=== PATIENT | male | born 1990 | race Caucasian/White ===

== ENCOUNTER 2018-01-13 16:48 | Emergency (ER) | payer SELFPAY ==
[~2018-01-13] VITALS: Ht 188 cm; Wt 81.6 kg
[2018-01-13 16:55] VITALS: BP 144/79
[2018-01-13] MEDS ORDERED: FLUORESCEIN OPHTH TEST STRIP. OS ONE (17:00)
[2018-01-13] MEDS ORDERED: TETRACAINE 0.5% OPHTH SOLUTION 4ML BOTTLE. OS ONE (17:00)
--- NOTE | 2018-01-13 17:04 | PHYS DOC ---
Past Medical History Past Medical History: No Pertinent History Past Surgical History: Other Additional Past Surgical Histo: rt. arm x4 Alcohol Use: Occasionally Drug Use: None Adult General Chief Complaint Chief Complaint: EYE PROBLEMS [facility] HPI Patient is a 27 year old male who presents with was using a saw cutting wood at work today when a piece flew up and got into his left eye. He states this happened at 1400 today. Patient states he rinsed out the left eye with normal saline. Patient denies wearing contacts or glasses. Patient has no primary care physician. Patient is allergic to amoxicillin, penicillin, morphine. His pain a 10 out 10 and states it feels like there is something stuck in his eye. Review of Systems Review of Systems Constitutional: Denies fever or chills [] Eyes: Denies change in visual acuity. left eye redness, or left eye pain, left eye foreign body. [] HENT: Denies nasal congestion or sore throat [] Respiratory: Denies cough or shortness of breath [] Cardiovascular: No additional information not addressed in HPI [] GI: Denies abdominal pain, nausea, vomiting, bloody stools or diarrhea [] : Denies dysuria or hematuria [] Musculoskeletal: Denies back pain or joint pain [] Integument: Denies rash or skin lesions [] Neurologic: Denies headache, focal weakness or sensory changes [] Endocrine: Denies polyuria or polydipsia [] All other systems were reviewed and found to be within normal limits, except as documented in this note. Current Medications Current Medications Current Medications Medications (Trade) Dose Ordered Sig/Fernanda Start Time Stop Time Status Last Admin Dose Admin Fluorescein Sodium (Ful-Jada) 1 strip 1X ONCE 01/13/18 17:00 01/13/18 17:01 DC 01/13/18 17:11 1 STRIP Tetracaine HCl (Tetracaine) 1 drop 1X ONCE 01/13/18 17:00 01/13/18 17:01 DC 01/13/18 17:10 1 DROP Allergies Allergies Allergies Coded Allergies Type Severity Reaction Last Updated Verified Penicillins Allergy Intermediate unknown,occured as a child 06/24/14 Yes amoxicillin Allergy Intermediate rash, swelling 11/30/14 No morphine Allergy Intermediate swelling and rash 06/24/14 Yes Physical Exam Physical Exam Constitutional: Well developed, well nourished, no acute distress, non-toxic appearance. [] HENT: Normocephalic, atraumatic, bilateral external ears normal, oropharynx moist, no oral exudates, nose normal. [] Eyes: PERRLA, EOMI, conjunctiva red, no discharge. [] Neck: Normal range of motion, no tenderness, supple, no stridor. [] Cardiovascular:Heart rate regular rhythm, no murmur [] Lungs & Thorax: Bilateral breath sounds clear to auscultation [] Abdomen: Bowel sounds normal, soft, no tenderness, no masses, no pulsatile masses. [] Skin: Warm, dry, no erythema, no rash. [] Back: No tenderness, no CVA tenderness. [] Extremities: No tenderness, no cyanosis, no clubbing, ROM intact, no edema. [] Neurologic: Alert and oriented X 3, normal motor function, normal sensory function, no focal deficits noted. [] Psychologic: Affect normal, judgement normal, mood normal. [] Current Patient Data Vital Signs Vital Signs Date Time Temp Pulse Resp B/P (MAP) Pulse Ox O2 Delivery O2 Flow Rate FiO2 01/13/18 16:55 98.1 95 18 144/79 (100) 98 Room Air 98.1 EKG EKG [] Radiology/Procedures Radiology/Procedures [] Course & Med Decision Making Course & Med Decision Making Patient is a 27 year old male who presents with was using a saw cutting wood at work today when a piece flew up and got into his left eye. He states this happened at 1400 today. Patient states he rinsed out the left eye with normal saline. Patient denies wearing contacts or glasses. Patient has no primary care physician. Patient is allergic to amoxicillin, penicillin, morphine. His pain a 10 out 10 and states it feels like there is something stuck in his eye. Patient' s conjunctivae is reddened and left eye is watering. Patient denies any light sensitivity. Patient states that it hurts to blink and so he has his eyes closed. Patietn discharged to follow up with Ophthalmology and use Erythromycin ointment. Eye Exam w/ slit lamp: Visual Acuity: L: 20/25, R: 20/13, B 20/13 Visual Avery: Intact in all four quadrants bilaterally Lac ducts/glands: No swelling Lids w/ evertion: Red, no foreign body Conj/[place]: Red, Corneal abrasion to Iris with Fluorescein/Maxim's Anterior Chamber: Clear Tonopen readings: Retina exam: No obvious abnormality [] Dragon Disclaimer Dragon Disclaimer This electronic medical record was generated, in whole or in part, using a voice recognition dictation system. Departure Departure Impression: Primary Impression: Corneal abrasion Disposition: 01 HOME, SELF-CARE Condition: LEFT WITHOUT BEING SEEN Referrals: NO PCP (PCP) TITI HUBBARD MD Patient Instructions: Eye - Corneal Abrasion Additional Instructions: Follw up with Chain Maker Hand as soon as possible. Use medications as prescribed. Scripts Erythromycin Base (Erythromycin) 1 Gm Oint...g. 1 GM OP 6XDAY for 7 Days, MISC APPLY 1CM OINTMENT TO INNER BOTTOM EYELID. BLINK SEVERAL TIMES AFTER APPLICATION. Prov: DANTE MAR APRN 01/13/18 Hydrocodone/Apap 5-325 (NORCO 5-325 TABLET) 1 Each Tablet 1 TAB PO PRN Q6HRS PRN for PAIN, #6 TAB 0 Refills Prov: DANTE MAR APRN 01/13/18 Problem Qualifiers Primary Impression: Corneal abrasion Encounter type: initial encounter Laterality: left Qualified Codes: S05.02XA - Injury of conjunctiva and corneal abrasion without foreign body, left eye, initial encounter DANTE MAR APRN Jan 13, 2018 17:04
[2018-01-13] MEDS ORDERED: ERYT1OIN6 OP (17:37)
[2018-01-13] MEDS ORDERED: HYDR-971 PO (17:37)
== END 2018-01-13 17:46 | disposition home or self-care (01) ==
LOC: ER 16:48
DX: S05.02XA Injury of conjunctiva and corneal abrasion without foreign body, left eye, initial encounter (principal); Z88.0 Allergy status to penicillin; Z88.5 Allergy status to narcotic agent; Z88.1 Allergy status to other antibiotic agents; X58.XXXA Exposure to other specified factors, initial encounter; Y93.89 Activity, other specified; Y92.89 Other specified places as the place of occurrence of the external cause; Y99.0 Civilian activity done for income or pay
CPT/HCPCS: 99283

== ENCOUNTER 2018-07-20 20:56 | Emergency (ER) | payer SELFPAY ==
[~2018-07-20] VITALS: Ht 188 cm; Wt 83.9 kg
[~2018-07-20 20:56] MED LIST: ERYT1OIN6 OP; HYDR-3164 PO
[2018-07-20 21:06] VITALS: BP 141/66
[2018-07-20] MEDS: TETRACAINE 0.5% OPHTH SOLUTION 4ML BOTTLE. OS ONE (22:17)
[2018-07-20] MEDS: DIPHTH,PERTUSS(ACELL),TET TOX 0.5 ML DISP.SYRIN. VAX IM ONE (22:18)
[2018-07-20] MEDS: FLUORESCEIN OPHTH TEST STRIP. OS ONE (22:18)
[2018-07-20] MEDS ORDERED: DICL50TA4 PO (22:52)
[2018-07-20] MEDS ORDERED: ERYT1OIN6 OP (22:52)
--- NOTE | 2018-07-20 22:52 | PHYS DOC ---
Past Medical History Past Medical History: No Pertinent History Past Surgical History: Other Additional Past Surgical Histo: rt. arm x4 Alcohol Use: None Drug Use: None Adult General Chief Complaint Chief Complaint: FOREIGN BODY/EYES HPI HPI Patient is a 28 year old male who presents to the ED today complaining of a splinter in the right eye, patient states he was splitting wood with no eye protection when a piece of wood flew into his right eye, he states he removed it but he still has the sensation of a foreign object. Patient denies any vision loss. Review of Systems Review of Systems Constitutional: Denies fever or chills [] Eyes: Reports foreign object to the right eye. Denies change in visual acuity, Musculoskeletal: Denies back pain or joint pain [] Integument: Denies rash or skin lesions [] Neurologic: Denies headache, focal weakness or sensory changes [] All other systems were reviewed and found to be within normal limits, except as documented in this note. Current Medications Current Medications Current Medications Medications (Trade) Dose Ordered Sig/Fernanda Start Time Stop Time Status Last Admin Dose Admin Diphtheria/ Tetanus/Acell Pertussis (Boostrix) 0.5 ml ONCE ONCE 07/20/18 22:00 07/20/18 22:01 DC 07/20/18 22:18 0.5 ML Fluorescein Sodium (Ful-Jada) 1 strip 1X ONCE 07/20/18 21:15 07/20/18 21:16 DC 07/20/18 22:18 1 STRIP Tetracaine HCl (Tetracaine) 1 drop 1X ONCE 07/20/18 21:30 07/20/18 21:31 DC 07/20/18 22:17 1 DROP Allergies Allergies Allergies Coded Allergies Type Severity Reaction Last Updated Verified Penicillins Allergy Intermediate unknown,occured as a child 06/24/14 Yes amoxicillin Allergy Intermediate rash, swelling 11/30/14 No morphine Allergy Intermediate swelling and rash 06/24/14 Yes Physical Exam Physical Exam Constitutional: Well developed, well nourished, no acute distress, non-toxic appearance. [] Eyes: PERRLA, EOMI, right conjunctiva is slightly injected. Visual exam under whitney lamp Tiny corneal abrasion noted on the right lateral eye after around 1600 position. Skin: Warm, dry, no erythema, no rash. [] Back: No tenderness, no CVA tenderness. [] Extremities: No tenderness, no cyanosis, no clubbing, ROM intact, no edema. [] Neurologic: Alert and oriented X 3, normal motor function, normal sensory function, no focal deficits noted. [] Psychologic: Affect normal, judgement normal, mood normal. [] Current Patient Data Vital Signs Vital Signs Date Time Temp Pulse Resp B/P (MAP) Pulse Ox O2 Delivery O2 Flow Rate FiO2 07/20/18 21:06 97.6 74 16 141/66 (91) 97 Room Air 97.6 EKG EKG [] Radiology/Procedures Radiology/Procedures [] Course & Med Decision Making Course & Med Decision Making Pertinent Labs and Imaging studies reviewed. (See chart for details) Patient has corneal abrasion, discharged with azithromycin. Follow-up with tuber machine operator helper in 1-2 weeks. Dragon Disclaimer Dragon Disclaimer This electronic medical record was generated, in whole or in part, using a voice recognition dictation system. Departure Departure Impression: Primary Impression: Corneal abrasion Disposition: HOME, SELF-CARE Condition: STABLE Referrals: NO PCP (PCP) TITI HUBBARD MD follow up in 1-2 weeks Patient Instructions: Eye - Corneal Abrasion Additional Instructions: You were seen for cornea abrasion of the right eye, use the prescribed eye ointment as ordered. Follow-up with the provided tuber machine operator helper or your own tuber machine operator helper in 1-2 weeks. Scripts Diclofenac Sodium (DICLOFENAC SODIUM) 50 Mg Tablet.dr 1 TAB PO BID, #20 TAB 0 Refills Prov: YONNY DICKEY APRN 07/20/18 Erythromycin Base (Erythromycin) 1 Gm Oint...g. 1 GM OP Q4HRS W/A, #1 MISC Apply half an inch to the right eye every 4 hours while awake for 7 days Prov: YONNY DICKEY APRN 07/20/18 Problem Qualifiers Primary Impression: Corneal abrasion Encounter type: initial encounter Laterality: right Qualified Codes: S05.01XA - Injury of conjunctiva and corneal abrasion without foreign body, right eye, initial encounter YONNY DICKEY APRN Jul 20, 2018 22:52
== END 2018-07-20 23:03 | disposition home or self-care (01) ==
LOC: ER 20:56
DX: T15.01XA Foreign body in cornea, right eye, initial encounter (principal); Z88.0 Allergy status to penicillin; Z88.1 Allergy status to other antibiotic agents; Z88.5 Allergy status to narcotic agent; W45.8XXA Other foreign body or object entering through skin, initial encounter; Y93.89 Activity, other specified; Y92.89 Other specified places as the place of occurrence of the external cause; Y99.8 Other external cause status
CPT/HCPCS: 90471; 90715; 99283

== ENCOUNTER 2019-03-22 15:33 | Emergency (ER) | payer SELFPAY ==
[~2019-03-22] VITALS: Ht 188 cm; Wt 97.5 kg
[~2019-03-22 15:33] MED LIST changes: +DICL50TA4 PO
[2019-03-22] MEDS ORDERED: NAPROXEN 500 MG TABLET PO STA (16:14)
[2019-03-22] MEDS ORDERED: BUPIVACAINE MPF 0.5% 30 ML VIAL. INJ ONE (16:15)
[2019-03-22] MEDS ORDERED: NEOMY/BACITR/POLYMYXIN OINT PACKET. TP ONE (16:15)
--- NOTE | 2019-03-22 16:17 | PHYS DOC ---
Past Medical History Past Medical History: No Pertinent History Past Surgical History: Other Additional Past Surgical Histo: rt. arm x4 Alcohol Use: None Drug Use: None Adult General Chief Complaint Chief Complaint: ANIMAL BITE HPI HPI Patient is a 28 year old male who presents to the emergency department with complaints of a laceration to the palmar aspect of his left index finger between the DIP and the PIP. Patient states at about 2300 last night a stray dog followed his dog into his house and bit him when he was trying to remove the stray dog. Patient does not know the vaccination status of the animal, he has not notified animal control prior to arrival. Patient reports that the dog was not foaming at the mouth or behaving bizarrely. He states his last tetanus shot was less than 5 years ago. Patient denies any numbness, or tingling of the affected finger. Limited range of motion due to pain. He currently rates his pain a 9 out of 10 on the pain scale, he denies any alleviating factors, he states that the pain increases if he tries to move his finger. Review of Systems Review of Systems Constitutional: Denies fever Musculoskeletal: See history of present illness Integument: Denies rash; see history of present illness Neurologic: Denies headache, focal weakness or sensory changes [] Complete systems were reviewed and found to be within normal limits, except as documented in this note. Current Medications Current Medications Current Medications Medications (Trade) Dose Ordered Sig/Fernanda Start Time Stop Time Status Last Admin Dose Admin Bupivacaine HCl (Sensorcaine Mpf 0.5%) 30 ml 1X ONCE 03/22/19 16:15 03/22/19 16:16 DC 03/22/19 16:42 30 ML Naproxen (Naprosyn) 500 mg 1X STAT 03/22/19 16:14 03/22/19 16:15 DC 03/22/19 16:41 500 MG Neomycin/ Polymyxin/ Bacitracin (Triple Antibiotic Ointment) 1 pkt 1X ONCE 03/22/19 16:15 03/22/19 16:16 DC 03/22/19 16:41 1 PKT Allergies Allergies Allergies Coded Allergies Type Severity Reaction Last Updated Verified Penicillins Allergy Intermediate unknown,occured as a child 06/24/14 Yes amoxicillin Allergy Intermediate rash, swelling 11/30/14 No morphine Allergy Intermediate swelling and rash 06/24/14 Yes Physical Exam Physical Exam Constitutional: Well developed, well nourished, no acute distress, non-toxic appearance. [] HENT: Normocephalic, atraumatic, bilateral external ears normal, nose normal. [ ] Eyes: PERRLA, EOMI, conjunctiva normal, no discharge. [] Neck: Normal range of motion, no stridor. [] Cardiovascular:Heart rate regular rhythm Lungs & Thorax: Respirations even and unlabored, no retractions, no respiratory distress Skin: Warm, dry; 4 cm laceration to the palmar surface of the left index finger extending from between the DIP and the PIP to about 1.5 cm proximal to the PIP, no active bleeding, adipose tissue exposed, mild surrounding erythema, no purulent drainage or odor Extremities: No cyanosis, left index finger ROM limited due to pain Neurologic: Alert and oriented X 3, normal motor function, normal sensory function, no focal deficits noted. [] Psychologic: Affect normal, judgement normal, mood normal. [] Current Patient Data Vital Signs Vital Signs Date Time Temp Pulse Resp B/P (MAP) Pulse Ox O2 Delivery O2 Flow Rate FiO2 03/22/19 16:35 98.5 70 18 127/79 (95) 98 Room Air 98.5 EKG EKG [] Radiology/Procedures Radiology/Procedures PROCEDURE: FINGER(S) LEFT FINGER(S) LEFT DATE: 03/22/2019 5:19 PM INDICATION: Second digit dog bite COMPARISON: None. FINDINGS: Bones: Acute mildly displaced fracture of the tuft of the second distal phalanx. Joints: The joint spaces are normal. Miscellaneous: No radiopaque foreign bodies. IMPRESSION: Acute mildly displaced second distal phalanx tuft fracture. Laceration Repair by me: Anesthesia: 0.5% bupivicaine block Location: L hand index finger Tendon/Joint/Nerves: No injury Foreign body: None detected after copious irrigation and exploration with 210 ml of NS Technique: 3 Simple Interrupted loose Sutures with 4-0 ethilon Complexity: No subcutaneous sutures/mucosal repair/edge excision Post Closure Length: 4 cm Patient's bleeding was easily controlled in the department and there is no indication of anemia. No evidence of compartment syndrome, neurologic injury, vascular injury, open joint, tendon laceration, or foreign body. Patient is appropriate for outpatient follow up. Scar minimization instructions given. [] Course & Med Decision Making Course & Med Decision Making Pertinent Labs and Imaging studies reviewed. (See chart for details) Pt is a 28-year-old male who presented to the emergency room with complaints of a dog bite to his left index finger. An x-ray revealed a displaced fracture of the distal phalanx of the left second digit, the wound was loosely closed to help promote healing. Patient was advised of the likelihood for scarring and risk of infection. Prescriptions were written for doxycycline and mupirocin ointment. Patient was placed in an aluminum finger splint and strict wound care instructions and follow-up instructions were given. Patient verbalized an understanding of home care, medications, follow-up, and return to ED instructions and was in agreement with the plan of care. [] Dragon Disclaimer Dragon Disclaimer This electronic medical record was generated, in whole or in part, using a voice recognition dictation system. Departure Departure Impression: Primary Impression: Dog bite of finger Additional Impression: Phalanx, distal fracture of finger Disposition: 01 HOME, SELF-CARE Condition: STABLE Referrals: BLANKA ROBISON MD Patient Instructions: Animal Bite, [id number], Finger Fracture, [id number], Laceration Care, Adult, [id number] Additional Instructions: Fill the prescriptions and use them as directed. Keep the area clean and dry. You may take Tylenol or ibuprofen as needed for pain. Keep the dressing that was placed today on for 24 hours then change the dressing twice a day and apply antibiotic ointment to the area. Wear the aluminum finger splint that was placed until the sutures have been removed and as directed by orthopedic doctor. Call Dr. Robison's office tomorrow to schedule follow-up appointment. Return to the ER or follow up with Dr. Robison in 14 days to have the sutures removed, sooner if you develop signs of infection including: redness, warmth, drainage, or a fever. Scripts Mupirocin (MUPIROCIN OINTMENT) 22 Gm Oint...g. 1 ANGELIKA TP BID for WOUND CARE for 7 Days, #1 TUBE 0 Refills Prov: MARCO ANTONIO WALL APRN 03/22/19 Doxycycline Hyclate (DOXYCYCLINE HYCLATE) 100 Mg Tablet 1 TAB PO BID, #14 TAB 0 Refills Prov: MARCO ANTONIO WALL OPHTHALMIC ASSISTANT 03/22/19 Splinting Splinting : Pre-Made Type: metal (long finger aluminum splint) Pre-Proc Neuro Vasc Exam: normal Post-Proc Neuro Vasc Exam: normal, unchanged from pre-exam Problem Qualifiers Primary Impression: Dog bite of finger Encounter type: initial encounter Qualified Codes: S61.259A - Open bite of unspecified finger without damage to nail, initial encounter; W54.0XXA - Bitten by dog, initial encounter Additional Impression: Phalanx, distal fracture of finger Encounter type: initial encounter Finger: index finger Fracture type: closed Fracture alignment: displaced Laterality: left Qualified Codes: S62.631A - Displaced fracture of distal phalanx of left index finger, initial encounter for closed fracture MARCO ANTONIO WALL OPHTHALMIC ASSISTANT Mar 22, 2019 16:17
[2019-03-22 16:35] VITALS: BP 127/79
--- NOTE | 2019-03-22 16:53 | RAD ---
FINGER(S) LEFT DATE: 03/22/2019 5:19 PM INDICATION: Second digit dog bite COMPARISON: None. FINDINGS: Bones: Acute mildly displaced fracture of the tuft of the second distal phalanx. Joints: The joint spaces are normal. Miscellaneous: No radiopaque foreign bodies. IMPRESSION: Acute mildly displaced second distal phalanx tuft fracture. Electronically signed by: Dru Mitchell MD (03/22/2019 4:50 PM) [facility]
[2019-03-22] MEDS ORDERED: DOXY100T PO (17:30)
[2019-03-22] MEDS ORDERED: MUPI22OI2 TP (17:30)
--- NOTE | 2019-03-22 17:36 | NUR ---
Triple-antiobiotic ointment applied to sutured wound and covered with non-adherent dressing then splinted with an aluminum finger splint secured with cloth tape and wrapped in rolled, gauze dressing. Pt given supplies to change dressing/splint as needed per Alpa PEACOCK's okay.
== END 2019-03-22 18:00 | disposition home or self-care (01) ==
LOC: ER 15:33
DX: S62.631A Displaced fracture of distal phalanx of left index finger, initial encounter for closed fracture (principal); S61.211A Laceration without foreign body of left index finger without damage to nail, initial encounter; Z88.0 Allergy status to penicillin; Z88.1 Allergy status to other antibiotic agents; Z88.6 Allergy status to analgesic agent; W54.0XXA Bitten by dog, initial encounter; Y93.89 Activity, other specified; Y92.099 Unspecified place in other non-institutional residence as the place of occurrence of the external cause; Y99.8 Other external cause status
CPT/HCPCS: 12002; 73140; 99284; J3490

== ENCOUNTER 2020-07-29 16:17 | Emergency (ER) | payer SELFPAY ==
[~2020-07-29] VITALS: Ht 188 cm; Wt 72.0 kg
[~2020-07-29 16:17] MED LIST changes: +DOXY100T PO; +MUPI22OI2 TP
[2020-07-29 16:29] VITALS: BP 99/71
[2020-07-29] MEDS ORDERED: FLUORESCEIN OPHTH TEST STRIP. ONE (16:49)
[2020-07-29] MEDS ORDERED: TETRACAINE 0.5% OPHTH SOLUTION 4ML BOTTLE. ONE (16:49)
[2020-07-29] MEDS ORDERED: FLUORESCEIN OPHTH TEST STRIP. OS ONE (17:30)
[2020-07-29] MEDS ORDERED: TETRACAINE 0.5% OPHTH SOLUTION 4ML BOTTLE. OS ONE (17:30)
[2020-07-29] MEDS ORDERED: HYDROcodone/APAP 5/325MG 1 TAB TABLET PO ONE (17:45)
[2020-07-29] MEDS ORDERED: HYDR-2759 PO (17:46)
[2020-07-29] MEDS ORDERED: ERYT1OIN6 OP (17:46)
--- NOTE | 2020-07-29 17:46 | PHYS DOC ---
Past Medical History Past Medical History: No Pertinent History Past Surgical History: Other Additional Past Surgical Histo: rt. arm x4 Smoking Status: Current Every Day Smoker Alcohol Use: None Drug Use: None General Adult EDM: Chief Complaint: FOREIGN BODY/EYES HPI: HPI: Patient is a 30 year old male presenting to the ED today complaining of a foreign object to the left eye. Patient states he was cutting wood with a saw and believes the sawdust got into his left eye. Patient denies any vision loss. Rates the pain to the left eye is 5 out of 10 describing it as irritation. He states he had regular glasses on Review of Systems: Review of Systems: Constitutional: Denies fever or chills. [] Eyes: Reports foreign object to the left eye. Denies change in visual acuity. [] Musculoskeletal: Denies back pain or joint pain. [] Integument: Denies rash. [] Neurologic: Denies headache, focal weakness or sensory changes. [] Psychiatric: Denies depression or anxiety. [] Heart Score: C/O Chest Pain: N/A (Dr. Villarreal) Risk Factors: Risk Factors: DM, Current or recent (<one month) smoker, HTN, HLP, family history of CAD, obesity. Risk Scores: Score 0 - 3: 2.5% MACE over next 6 weeks - Discharge Home Score 4 - 6: 20.3% MACE over next 6 weeks - Admit for Clinical Observation Score 7 - 10: 72.7% MACE over next 6 weeks - Early Invasive Strategies Current Medications: Current Medications Medications (Trade) Dose Ordered Sig/Fernanda Start Time Stop Time Status Last Admin Dose Admin Acetaminophen/ Hydrocodone Bitart (Lortab 5/325) 1 tab 1X ONCE 07/29/20 17:45 07/29/20 17:46 Fluorescein Sodium (Ful-Jada) 1 strip 1X ONCE 07/29/20 17:30 07/29/20 17:31 DC 07/29/20 17:06 1 STRIP Tetracaine HCl (Tetracaine) 1 drop 1X ONCE 07/29/20 17:30 07/29/20 17:31 DC 07/29/20 17:06 1 DROP Allergies: Allergies: Allergies Coded Allergies Type Severity Reaction Last Updated Verified Penicillins Allergy Intermediate unknown,occured as a child 06/24/14 Yes amoxicillin Allergy Intermediate rash, swelling 11/30/14 No morphine Allergy Intermediate swelling and rash 06/24/14 Yes Physical Exam: PE: Constitutional: Well developed, well nourished, no acute distress, non-toxic appearance. [] HENT: Normocephalic, atraumatic, bilateral external ears normal, oropharynx moist, no oral exudates, nose normal. [] Eyes: PERRLA, EOMI, slight erythema to the left conjunctiva, slight tearing Left eye exam under Dey lamp Left eye was numbed with tetracaine, the eye was stained with fluorescein. No f oreign objects or lacerations were noted Skin: Warm, dry, no erythema, no rash. [] Back: No tenderness, no CVA tenderness. [] Extremities: No tenderness, no cyanosis, no clubbing, ROM intact, no edema. [] Neurologic: Alert and oriented X 3, normal motor function, normal sensory function, no focal deficits noted. [] Psychologic: Affect normal, judgement normal, mood normal. [] Current Patient Data: Vital Signs: Vital Signs Date Time Temp Pulse Resp B/P (MAP) Pulse Ox O2 Delivery O2 Flow Rate FiO2 07/29/20 16:29 98.7 94 18 99/71 (80) 100 Room Air 98.7 EKG: EKG: [] Radiology/Procedures: Radiology/Procedures: [] Course & Med Decision Making: Course & Med Decision Making Pertinent Labs and Imaging studies reviewed. (See chart for details) This is a 30-year-old male patient presenting to the ED today complaining of a foreign object to the left eye, he was cutting wood with sawdust and believes some sawdust got into his left eye. Left eye exam is negative. Discharged with erythromycin eye ointment. Follow-up with ophthalmology, tetanus up-to-date. Veneciaon Disclaimer: Dragjesus Disclaimer: This electronic medical record was generated, in whole or in part, using a voice recognition dictation system. Departure Departure Impression: Primary Impression: Foreign body in eyeball, left Qualified Codes: S05.52XA - Penetrating wound with foreign body of left eyeball, initial encounter Disposition: 01 DC HOME SELF CARE/HOMELESS Condition: STABLE Referrals: NO PCP (PCP) JAKUB RAGLAND MD follow up in 1 week Patient Instructions: Eye - Foreign Body, [id number] Additional Instructions: You were seen for left eye irritation. Please follow-up with your ophthalmologi st in 1 week if symptoms persist. Use the prescribed medications as ordered. Scripts Hydrocodone/Acetaminophen (Hydrocodone-Acetamin 5-325 mg) 1 Each Tablet 1 EACH PO Q6-8HRS PRN for PAIN, #6 TAB Prov: YONNY DICKEY APRN 07/29/20 Erythromycin Base (Erythromycin) 1 Gm Oint...g. 0.5 INCH OP Q4HRS W/A, #1 MISC Apply half an inch to the left eye every 4 hours while awake Prov: YONNY DICKEY APRN 07/29/20 YONNY DICKEY APRN Jul 29, 2020 17:46
== END 2020-07-29 18:04 | disposition home or self-care (01) ==
LOC: ER 16:17
DX: S05.52XA Penetrating wound with foreign body of left eyeball, initial encounter (principal); F17.200 Nicotine dependence, unspecified, uncomplicated; Z98.890 Other specified postprocedural states; Z88.0 Allergy status to penicillin; Z88.6 Allergy status to analgesic agent; Z88.1 Allergy status to other antibiotic agents; X58.XXXA Exposure to other specified factors, initial encounter; Y93.89 Activity, other specified; Y92.89 Other specified places as the place of occurrence of the external cause; Y99.8 Other external cause status
CPT/HCPCS: 99283